=== PATIENT | female | born 1935 | race Caucasian/White ===

== ENCOUNTER 2019-09-22 11:01 | Outpatient (CLI) | payer MEDICARE, OTHER, SELFPAY | END 2019-09-22 11:02 | disposition home or self-care (01) | LOC: ANHAUDIO 11:04 | PROVIDERS: PCP Family Medicine Adolescent Medicine; Visit Provider Family Medicine Adolescent Medicine | DX: H91.90 Unspecified hearing loss, unspecified ear (principal); H61.23 Impacted cerumen, bilateral; Z53.9 Procedure and treatment not carried out, unspecified reason | CPT/HCPCS: 99199 ==